=== PATIENT | female | born 1960 | race Caucasian/White ===

== ENCOUNTER → 2017-09-08 | Outpatient (CLI) | payer OTHER | LOC: M.RAD 11:46 | DX: Z12.31 Encounter for screening mammogram for malignant neoplasm of breast (principal) ==

== ENCOUNTER → 2017-12-01 | Outpatient (CLI) | payer OTHER | LOC: M.RAD 13:32 | DX: R92.1 Mammographic calcification found on diagnostic imaging of breast (principal) ==

== ENCOUNTER → 2017-12-08 | Outpatient (CLI) | payer OTHER ==
--- NOTE | 2017-12-12 11:08 | PATH ---
[address] [address] PATHOLOGY RPT PROCEDURE Name: VICTORIA GALLEGOS [facility] [id number] Admission: 12/08/17 Date of : 62 Discharge: Report #: [id number] Path Case #: [id number] [facility] Accession Number: [id number] . 01 Material submitted: . LEFT BREAST TISSUE WITH CALCIFICATION . 01 Clinical history: . Left stereotactic breast biopsy for left breast calcification . 02 Diagnosis: Left breast calcifications, stereotactic biopsy: - Benign breast tissue with fibrosis, duct ectasia and minimal chronic inflammation, with single luminal calcification identified, negative for atypia. See comment. [facility]/12/11/2017 . 02 Comment: After serial multiple step sectioning of all tissue blocks, a single tissue level contains a luminal calcification in A2 and correlation with the target lesion is recommended. . Reviewed with Dr. Magdiel Canales who agrees with the diagnosis. . (HERIBERTO:mml; 12/11/17) . 02 Electronically signed: . Toby Morgan MD, Pathologist NPI- [id number] . 01 Gross description: . Received in formalin labeled "Victoria Gallegos, left breast calcifications," are multiple needle cores of yellow-apple fibrofatty tissue measuring 3.5 x 4.2 x 0.8 cm in aggregate dimensions. Also received is a plastic cassette containing multiple cores of yellow-apple fibrofatty tissue measuring 2.8 x 1.9 x 0.4 cm in aggregate dimensions. The tissue in the cassette is transferred to cassette A3 and the remaining tissue is submitted in its entirety in cassettes A1 and A2. The cold ischemic time is 30 minutes. The total formalin fixation time is approximately 27 hours and 50 minutes. (TSD; 12/08/2017) TOB/TOB . 02 Pathologist provided ICD-10: N60.32, N60.42, N61.0 . 02 CPT . [id number] Performed at: 01 [place] [address] PATHOLOGY RPT PROCEDURE Name: VICTORIA GALLEGOS [facility] [id number] Admission: 12/08/17 Date of : 62 Discharge: Report #: [id number] Path Case #: [id number] [facility] [address], [place], [place] [id number] MD Adam Samson MD Phone: [phone] Performed at: 02 [facility] [address], [place], [place] [id number] MD Toby Morgan MD Phone: [phone]
== END | disposition home or self-care (01) ==
LOC: M.RAD 12:52
DX: N60.32 Fibrosclerosis of left breast (principal); N61.0 Mastitis without abscess; N60.42 Mammary duct ectasia of left breast; R92.1 Mammographic calcification found on diagnostic imaging of breast

== ENCOUNTER → 2018-10-09 | Outpatient (CLI) | payer OTHER ==
[2018-10-09 16:59] LABS: ABSOLUTE BASOPHILS 0.1 thou/uL (0.0-0.2); ABSOLUTE EOSINOPHILS 0.3 thou/uL (0.0-0.7); ABSOLUTE LYMPHOCYTES 3.7 thou/uL (0.8-5.3); ABSOLUTE MONOCYTES 0.7 thou/uL (0.0-1.2); ABSOLUTE NEUTROPHILS 5.6 thou/uL (1.6-8.1); BASOPHILS 0.6 %; EOSINOPHILS 3.1 %; HEMATOCRIT 40.8 % (37.0-47.0); HEMOGLOBIN 14.2 gm/dL (12.0-15.0); LYMPHOCYTES 35.6 %; MCH 30.6 pg (26.0-34.0); MCHC 34.7 g/dL (28.0-37.0); MCV 88.1 fL (80.0-100.0); MONOCYTES 6.5 %; MPV 8.8 fl. (7.2-11.1); NUCLEATED RBCS 0 /100WBC; PLATELET COUNT* 283 thou/uL (150-400); POLYS 54.2 %; RBC 4.63 mil/uL (4.20-5.00); RDW-CV 13.8 % (10.5-14.5); WBC 10.3 thou/uL (4.0-11.0)
[2018-10-09 17:22] LABS: ALBUMIN 3.6 g/dL (3.4-5.0); CREATININE 0.8 mg/dL (0.6-1.3); POTASSIUM 4.3 mmol/L (3.5-5.1); TOTAL BILIRUBIN 0.2 mg/dL (<0.1-1.0); TOTAL PROTEIN 7.9 g/dL (6.4-8.2)
== END ==
LOC: M.LAB 16:40
PROVIDERS: Internal Medicine
DX: E03.9 Hypothyroidism, unspecified (principal); E78.2 Mixed hyperlipidemia; E66.9 Obesity, unspecified

== ENCOUNTER → 2019-12-10 | Outpatient (CLI) | payer OTHER | LOC: M.LAB 16:22 | DX: E03.9 Hypothyroidism, unspecified (principal); Z79.899 Other long term (current) drug therapy ==

== ENCOUNTER → 2020-03-31 | Outpatient (CLI) | payer OTHER | LOC: M.RAD 14:19 | PROVIDERS: ATTEND Internal Medicine | DX: Z12.31 Encounter for screening mammogram for malignant neoplasm of breast (principal) ==

== ENCOUNTER → 2021-06-19 | Outpatient (CLI) | payer OTHER ==
[2021-06-19 14:56] LABS: ABSOLUTE EOSINOPHILS 0.4 thou/uL (0.0-0.7); ABSOLUTE LYMPHOCYTES 3.3 thou/uL (0.8-5.3); ABSOLUTE MONOCYTES 0.5 thou/uL (0.0-1.2); BASOPHILS 0.3 %; EOSINOPHILS 4.7 %; HEMATOCRIT 41.5 % (37.0-47.0); HEMOGLOBIN 13.7 gm/dL (12.0-15.0); LYMPHOCYTES 35.2 %; MCH 29.9 pg (26.0-34.0); MCHC 33.1 g/dL (28.0-37.0); MCV 90.4 fL (80.0-100.0); MONOCYTES 5.5 %; MPV 8.6 fl. (7.2-11.1); NUCLEATED RBCS 0 /100WBC; PLATELET COUNT* 266 thou/uL (150-400); POLYS 54.3 %; RBC 4.59 mil/uL (4.20-5.00); RDW-CV 13.6 % (10.5-14.5); WBC 9.3 thou/uL (4.0-11.0)
[2021-06-19 15:11] LABS: ALBUMIN 3.8 g/dL (3.4-5.0); ALKALINE PHOSPHATASE 99 U/L (46-116); ANION GAP 7 mmol/L (7-16); BUN 10 mg/dL (7-18); CALCIUM 9.2 mg/dL (8.5-10.1); CHLORIDE 105 mmol/L (98-107); CHOLESTEROL 234 mg/dL (<200); CO2 29 mmol/L (21-32); CREATININE 0.8 mg/dL (0.6-1.3); GLUCOSE 94 mg/dL (70-99); HDL CHOLESTEROL 54 mg/dL (>40); LDL CHOLESTEROL 153 mg/dL (<100); POTASSIUM 4.6 mmol/L (3.5-5.1); SGOT 19 U/L (15-37); SGPT 36 U/L (30-65); SODIUM 141 mmol/L (136-145); TC:HDL 4.3 Ratio (Not establshd); TOTAL BILIRUBIN 0.4 mg/dL (<0.1-1.0); TOTAL PROTEIN 7.6 g/dL (6.4-8.2); TRIGLYCERIDE 137 mg/dL (<150); VLDL 27 mg/dL (<40)
[2021-06-19 15:17] LABS: SERUM ASSESSMENT Clear
== END ==
LOC: M.LAB 14:21
PROVIDERS: ATTEND Internal Medicine
DX: E03.9 Hypothyroidism, unspecified (principal)